=== PATIENT | male | born 1980 | race Caucasian/White ===

== ENCOUNTER 2018-03-10 12:24 | Emergency (ER) | payer BC ==
[~2018-03-10] VITALS: Ht 165.1 cm; Wt 80.0 kg
[~2018-03-10 12:24] MED LIST: NAPROSYN500 MG PO
[2018-03-10 13:40] VITALS: BP 142/84
== END 2018-03-10 13:40 | disposition home or self-care (01) | DRG 605 ==
LOC: ED 12:24
DX: S61.432A Puncture wound without foreign body of left hand, initial encounter (principal); W26.8XXA Contact with other sharp object(s), not elsewhere classified, initial encounter; Y93.89 Activity, other specified; Y92.828 Other wilderness area as the place of occurrence of the external cause